=== PATIENT | male | born 1975 | race Caucasian/White ===

== ENCOUNTER 2020-05-30 23:48 | Emergency (ER) | payer SELFPAY ==
[~2020-05-30] VITALS: Ht 182.8 cm; Wt 117.9 kg
[2020-05-31] MEDS ORDERED: IBUPROFEN 800 MG (MOTRIN) TAB PO ONE ×2 (00:18→00:30)
[2020-05-31] MEDS ORDERED: ACETAMINOPHEN 500 MG TAB (TYLENOL) ONE (00:18)
[2020-05-31] MEDS ORDERED: ACETAMINOPHEN 500 MG TAB (TYLENOL) PO ONE (00:30)
--- NOTE | 2020-05-31 00:31 | ED Cough/URI ---
General Chief Complaint: Cough/Cold/Flu Symptoms Stated Complaint: DIZZY,TASTE WEIRD,NBACK PAIN,SORE THROAT Source: patient (VERY VAGUE AND LIMITED HISTORIAN) History of Present Illness Date Seen by Provider: May 31, 2020 Time Seen by Provider: 00:15 Initial Comments PT ARRIVES VIA POV FROM HOME PT STATES HE HAS BEEN SICK FOR 4-5 DAYS C/O NON-PRODUCTIVE COUGH C/O NASAL CONGESTION C/O SORE THROAT C/O LOSS OF TASTE AND SMELL C/O BODY ACHES/BACK PAIN C/O DIZZINESS C/O FATIGUE C/O "COLD CHILLS"--HAS NOT CHECKED TEMP AT HOME--TEMP IS 101.4 ON ARRIVAL HERE C/O MILD HEADACHE NO CHEST PAIN NO SHORTNESS OF BREATH NO GI SYMPTOMS NO CHRONIC MEDICAL ILLNESSES PT HAS NOT SOUGHT CARE UNTIL TONIGHT PT HAS NOT TAKEN ANYTHING FOR SYMPTOMS AT ANY TIME SYMPTOMS ARE NO DIFFERENT TONIGHT IN ANY WAY NO KNOWN SICK CONTACTS OR KNOWN EXPOSURE TO COVID-19 LIVES AT HOME WITH HIS BROTHER--NEITHER OF THEM WORK PCP: [facility] Allergies and Home Medications Allergies Coded Allergies: No Known Drug Allergies (Unverified , 05/31/20) Patient Home Medication List Home Medication List Reviewed: Yes Review of Systems Review of Systems Constitutional: see HPI, chills, diaphoresis, dizziness, fever, malaise EENTM: see HPI, nose congestion, throat pain, other (LOSS OF TASTE AND SMELL) Respiratory: see HPI, cough; No short of breath Cardiovascular: no symptoms reported Gastrointestinal: no symptoms reported; No abdominal pain, No nausea, No vomiting Genitourinary: no symptoms reported Musculoskeletal: see HPI (BODY ACHES), back pain Skin: no symptoms reported Psychiatric/Neurological: No Symptoms Reported; Denies Headache Hematologic/Lymphatic: No Symptoms Reported Immunological/Allergic: no symptoms reported Past Aairrca-Gkpdhs-Gfoymu Hx Past Med/Social Hx: Reviewed and Corrections made Patient Social History Alcohol Use: Past History Drug of Choice: DENIES Type Used: Smokeless Tobacco Past Medical History Surgeries: No Respiratory: No Cardiac: No Neurological: No Genitourinary: No Gastrointestinal: No Musculoskeletal: No Endocrine: No HEENT: No Cancer: No Psychosocial: No Integumentary: No Blood Disorders: No Physical Exam Vital Signs - First Documented 05/31/20 01:15 Pulse Ox 99 Capillary Refill : Height: '" Weight: lbs. oz. kg; BMI Method: General Appearance: WD/WN, no apparent distress, other (DOES NOT APPEAR ILL OR TO BE IN ANY DISCOMFORT OR DISTRESS. 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, no motor/sensory deficits, alert, normal mood/affect, oriented x 3 Skin: normal color, diaphoresis (AND VERY WARM) Progress/Results/Core Measures Suspected Sepsis SIRS Temperature: Pulse: Respiratory Rate: Blood Pressure / Mean: Results/Orders Lab Results Laboratory Tests Test 05/31/20 00:20 Range/Units Coronavirus 2019 (ABBEY) Positive H Negative Group A Streptococcus Screen NEGATIVE NEGATIVE Micro Results Microbiology 05/31/20 Influenza Types A,B Antigen (PASCUAL) - Final, Complete My Orders Orders - NEMESIO KRAFT DO Rapid Strep A Screen (05/31/20 00:17) Influenza A And B Antigens (05/31/20 00:17) Coronavirus Sars-Cov-2 So 2018 (05/31/20 00:17) Covid 19 Inhouse Test (05/31/20 00:17) Ibuprofen Tablet (Motrin Tablet) (05/31/20 00:30) Acetaminophen Tablet (Tylenol Tablet) (05/31/20 00:30) Ibuprofen Tablet (Motrin Tablet) (05/31/20 00:18) Acetaminophen Tablet (Tylenol Tablet) (05/31/20 00:18) Medications Given in ED Current Medications Medications Dose Ordered Sig/Juan Route Start Time Stop Time Status Last Admin Dose Admin Acetaminophen 1,000 mg ONCE ONCE PO 05/31/20 00:30 05/31/20 00:31 DC 05/31/20 00:23 1,000 MG Ibuprofen 800 mg ONCE ONCE PO 05/31/20 00:30 05/31/20 00:31 DC 05/31/20 00:23 800 MG Vital Signs/I&O 05/31/20 05/31/20 2 00:13 00:13 01:15 Temp 38.6 37.8 Pulse 89 79 Resp 20 18 B/P (MAP) 129/63 (85) 121/67 (85) Pulse Ox 99 O2 Delivery Room Air Room Air Room Air Capillary Refill : Progress Note : Progress Note PLACED IN ISOLATION ROOM PPE WORN AT ALL TIMES COVID-19 TESTING PERFORMED PT ADVISED OF NEED FOR QUARANTINE GIVEN TYLENOL AND MOTRIN FOR FEVER TEMP DOWN TO 100.3 AT DISMISSAL AND PT IS NOW SWEATING PROFUSELY NO COUGH, NO DYSPNEA, NO HYPOXIA DURING ER STAY Departure Impression Primary Impression: COVID-19 virus infection Disposition: HOME, SELF-CARE Condition: Stable Departure-Patient Inst. Referrals: [facility] (PCP/Family) Primary Care Physician Patient Instructions: Coronavirus Disease 2019 (COVID-19) ED, Preventing the Spread of an Infectious Disease Add. Discharge Instructions: LOTS OF CLEAR LIQUIDS--WATER, BROTH, JELLO, GATORADE TYLENOL 1 GRAM AND MOTRIN 800 MG 4 TIMES A DAY NEEDED FOR PAIN OR FEVER OVER THE COUNTER MEDICATIONS NEEDED FOR COUGH AND CONGESTION FOLLOW UP WITH YOUR DR IN 4-5 DAYS IF NO BETTER, RETURN TO ER IF WORSE QUARANTINE YOURSELF AND ALL HOUSEHOLD MEMBERS AND CLOSE CONTACTS FOR 2 WEEKS OR UNTIL CLEARED BY YOUR DR OR HEALTH DEPT All discharge instructions reviewed with patient and/or family. Voiced understanding. NEMESIO KRAFT DO May 31, 2020 00:31
[2020-05-31 01:15] VITALS: BP 121/67
== END 2020-05-31 01:20 | disposition home or self-care (01) ==
LOC: EDUNIT# 23:48 → ER 23:55
DX: U07.1 COVID-19 (principal)
CPT/HCPCS: 87430; 87804; 99282; U0002; 87635

== ENCOUNTER 2020-06-05 23:18 | Emergency (ER) | payer SELFPAY ==
[~2020-06-05] VITALS: Ht 182.9 cm; Wt 118.2 kg
[2020-06-05] MEDS ORDERED: ACETAMINOPHEN 500 MG TAB (TYLENOL) ONE (23:30)
[2020-06-05] MEDS ORDERED: ACETAMINOPHEN 500 MG TAB (TYLENOL) PO ONE (23:45)
[2020-06-05 23:47] LABS: ALBUMIN 3.5 GM/DL (3.2-4.5); CHLORIDE 101 MMOL/L (98-107); POTASSIUM 3.8 MMOL/L (3.6-5.0); SODIUM 138 MMOL/L (135-145)
[2020-06-05 23:48] LABS: BASOPHILS % (AUTO) 0 % (0-10); CALCIUM 8.7 MG/DL (8.5-10.1); EOSINOPHILS % (AUTO) 2 % (0-10); HEMATOCRIT 39 % (40-54); HEMOGLOBIN 11.8 g/dL (13.3-17.7); LYMPHOCYTES # (AUTO) 0.5 10^3/uL (1.0-4.0); LYMPHOCYTES % (AUTO) 22 % (12-44); MEAN CORPUSCULAR HEMOGLOBIN 25 pg (25-34); MEAN CORPUSCULAR HGB CONC 30 g/dL (32-36); MEAN CORPUSCULAR VOLUME 83 fL (80-99); MEAN PLATELET VOLUME 11.5 fL (9.0-12.2); MONOCYTES # (AUTO) 0.4 10^3/uL (0.0-1.0); MONOCYTES % (AUTO) 17 % (0-12); NEUTROPHILS # (AUTO) 1.4 10^3/uL (1.8-7.8); NEUTROPHILS % (AUTO) 59 % (42-75); PLATELET COUNT 274 10^3/uL (130-400); WHITE BLOOD COUNT 2.5 10^3/uL (4.3-11.0)
[2020-06-05 23:49] LABS: GLUCOSE 97 MG/DL (70-105); TOTAL PROTEIN 6.4 GM/DL (6.4-8.2)
--- NOTE | 2020-06-05 23:49 | ED General ---
General Chief Complaint: Fever-Adult/Adol Stated Complaint: FEVER,COVID+ Source of Information: Patient Exam Limitations: No Limitations History of Present Illness Date Seen by Provider: Jun 05, 2020 Time Seen by Provider: 23:30 Initial Comments Patient is a 44-year-old male who presents to the emergency department today with a chief complaint of generally not feeling well. Patient states that he was diagnosed with coronavirus approximately 1 week ago. Patient states that a couple of days ago he was diagnosed with an eye infection and was given TobraDex eyedrops at [facility]. Patient states that he felt like this evening his eye was becoming "infected again" and started using the drops. Patient states the drops made him cough and he states that he coughed up flecks of blood. Patient states that he has had fever tonight. He has had a bad taste in his mouth. He has been coughing more than usual. Denies any complaints of earache runny nose or sore throat. Denies feeling short of breath. No nausea, vomiting or diarrhea. No urinary complaints. Patient states that he just generally feels not well. All other review of systems reviewed and negative except as stated. Timing/Duration: 1-3 Hours Severity: Moderate Associated Systoms: Cough, Fever/Chills, Malaise Allergies and Home Medications Allergies Coded Allergies: No Known Drug Allergies (Unverified , 05/31/20) Patient Home Medication List Home Medication List Reviewed: Yes Review of Systems Review of Systems Constitutional: see HPI EENTM: no symptoms reported Respiratory: cough; No short of breath Cardiovascular: no symptoms reported Gastrointestinal: no symptoms reported Genitourinary: no symptoms reported Musculoskeletal: no symptoms reported Skin: no symptoms reported All Other Systems Reviewed Negative Unless Noted: Yes Past Iqjfbkl-Yvvdwi-Jlviot Hx Patient Social History Drug of Choice: DENIES Type Used: Smokeless Tobacco Past Medical History Surgeries: No Respiratory: No Cardiac: No Neurological: No Genitourinary: No Gastrointestinal: No Musculoskeletal: No Endocrine: No HEENT: No Cancer: No Psychosocial: No Integumentary: No Blood Disorders: No Physical Exam-Suspected Sepsis Physical Exam Vital Signs Vital Signs - First Documented 06/05/20 23:20 Temp 38.3 Pulse 78 Resp 20 B/P (MAP) 120/67 (84) Pulse Ox 99 O2 Delivery Room Air Capillary Refill : Height, Weight, BMI Height: '" Weight: lbs. oz. kg; 35.00 BMI Method: General Appearance: No Apparent Distress, WD/WN Eyes: Bilateral Eye Normal Inspection, Bilateral Eye PERRL, Bilateral Eye EOMI HEENT: PERRL/EOMI, TMs Normal, Normal ENT Inspection, Pharynx Normal Respiratory: Rhonci, Wheezing Cardiovascular: Regular Rate, Rhythm, No Murmur Gastrointestinal: Normal Bowel Sounds, Non Tender, Soft Extremity: Normal Capillary Refill, Normal Inspection, Non Tender, No Calf Tenderness, No Pedal Edema Neurologic/Psychiatric: Alert, Oriented x3, No Motor/Sensory Deficits, Normal Mood/Affect Skin: normal color, warm/dry Progress/Results/Core Measures Suspected Sepsis SIRS Temperature: Pulse: Respiratory Rate: Laboratory Tests 06/05/20 23:20: White Blood Count 2.5L Blood Pressure / Mean: Laboratory Tests 06/05/20 23:20: Creatinine 0.86, Platelet Count 274, Total Bilirubin 0.4 Results/Orders Lab Results Laboratory Tests Test 06/05/20 23:20 Range/Units White Blood Count 2.5 L 4.3-11.0 10^3/uL Red Blood Count 4.69 4.30-5.52 10^6/uL Hemoglobin 11.8 L 13.3-17.7 g/dL Hematocrit 39 L 40-54 % Mean Corpuscular Volume 83 80-99 fL Mean Corpuscular Hemoglobin 25 25-34 pg Mean Corpuscular Hemoglobin Concent 30 L 32-36 g/dL Red Cell Distribution Width 15.1 H 10.0-14.5 % Platelet Count 274 130-400 10^3/uL Mean Platelet Volume 11.5 9.0-12.2 fL Immature Granulocyte % (Auto) 1 % Neutrophils (%) (Auto) 59 42-75 % Lymphocytes (%) (Auto) 22 12-44 % Monocytes (%) (Auto) 17 H 0-12 % Eosinophils (%) (Auto) 2 0-10 % Basophils (%) (Auto) 0 0-10 % Neutrophils # (Auto) 1.4 L 1.8-7.8 10^3/uL Lymphocytes # (Auto) 0.5 L 1.0-4.0 10^3/uL Monocytes # (Auto) 0.4 0.0-1.0 10^3/uL Eosinophils # (Auto) 0.0 0.0-0.3 10^3/uL Basophils # (Auto) 0.0 0.0-0.1 10^3/uL Immature Granulocyte # (Auto) 0.0 0.0-0.1 10^3/uL Sodium Level 138 135-145 MMOL/L Potassium Level 3.8 3.6-5.0 MMOL/L Chloride Level 101 98-107 MMOL/L Carbon Dioxide Level 26 21-32 MMOL/L Anion Gap 11 5-14 MMOL/L Blood Urea Nitrogen 10 7-18 MG/DL Creatinine 0.86 0.60-1.30 MG/DL Estimat Glomerular Filtration Rate > 60 BUN/Creatinine Ratio 12 Glucose Level 97 70-105 MG/DL Calcium Level 8.7 8.5-10.1 MG/DL Corrected Calcium 9.1 8.5-10.1 MG/DL Total Bilirubin 0.4 0.1-1.0 MG/DL Aspartate Amino Transf (AST/SGOT) 35 H 5-34 U/L Alanine Aminotransferase (ALT/SGPT) 47 0-55 U/L Alkaline Phosphatase 137 H 40-136 U/L C-Reactive Protein High Sensitivity 5.37 H 0.00-0.50 MG/DL Total Protein 6.4 6.4-8.2 GM/DL Albumin 3.5 3.2-4.5 GM/DL My Orders Orders - ADEOLA GARCIA MD Ed Iv/Invasive Line Start (06/05/20 23:35) Cbc With Automated Diff (06/05/20 23:35) Comprehensive Metabolic Panel (06/05/20 23:35) Hs C Reactive Protein (06/05/20 23:35) Chest 1 View, Ap/Pa Only (06/05/20 23:35) Acetaminophen Tablet (Tylenol Tablet) (06/05/20 23:45) Acetaminophen Tablet (Tylenol Tablet) (06/05/20 23:30) Medications Given in ED Vital Signs/I&O Capillary Refill : Progress Note : Time: 00:12 Progress Note 44-year-old male presents to the emergency department today with a chief complaint of generalized malaise and fatigue in the setting of 1 week of coronavirus. Evaluation today includes a physical exam, CBC, Chem-12, CRP and chest x-ray. Patient's white blood cell count is rather low at 2.5. He does h ave a mildly elevated CRP at 5. Otherwise his laboratory studies are unremarkable. Patient did have a temperature of 101 here in the emergency department. He states that he ran out of Tylenol last weekend. He is not tachycardic or hypotensive or hypoxic at this visit. He does not meet criteria at this time for SIRS or sepsis. Chest x-ray is reviewed shows no evidence of pneumonia/infiltrate/effusion. Patient is treated in the emergency department with a gram of Tylenol. He has improvement of his fever. Patient will be discharged home with conservative management, fluids Tylenol and ibuprofen. He is strongly encouraged to follow-up with his primary care physician. He verbalizes understanding. All questions are sought and answered. Patient is stable for discharge. Departure Impression Primary Impression: Fever Qualified Codes: R50.81 - Fever presenting with conditions classified elsewhere Additional Impression: Coronavirus infection Disposition: HOME, SELF-CARE Condition: Stable Departure-Patient Inst. Decision time for Depature: 00:15 Referrals: [facility] ([place]P/Family) Primary Care Physician Patient Instructions: Coronavirus Disease 2019 (COVID-19) (DC), Fever, Adult (DC) Add. Discharge Instructions: Drink plenty of fluids to stay well-hydrated. Alternate [id number]-bexkpun Tylenol and ibuprofen as needed every 6 hours for fever/body aches. Follow-up with your primary care physician. Return to the emergency department for any worsening symptoms, shortness of breath, cough or other emergent concerns. Copy Copies To 1: KEATON DIAZ KATHRYN M MD Jun 05, 2020 23:49
[2020-06-05 23:50] LABS: CARBON DIOXIDE 26 MMOL/L (21-32)
[2020-06-05 23:51] LABS: BILIRUBIN,TOTAL 0.4 MG/DL (0.1-1.0)
[2020-06-05 23:53] LABS: ALKALINE PHOSPHATASE 137 U/L (40-136); CREATININE SERUM 0.86 MG/DL (0.60-1.30); GFR ESTIMATED > 60
[2020-06-05 23:54] LABS: BUN/CREATININE RATIO 12
[2020-06-05 23:56] LABS: ALANINE AMINOTRANSFERASE 47 U/L (0-55)
[2020-06-06 01:15] VITALS: BP 116/72
--- NOTE | 2020-06-06 06:07 | Diagnostic Imaging Report ---
INDICATION: Lower respiratory infection Portable chest 11:59 PM Heart size and pulmonary vascularity are normal. Lungs are clear. There are no effusions or pneumothoraces. IMPRESSION: No acute abnormalities in the chest Dictated by: Dictated on workstation # [id number]
== END 2020-06-06 02:30 | disposition home or self-care (01) ==
LOC: EDUNIT# 23:18 → ER 23:19
DX: U07.1 COVID-19 (principal)
CPT/HCPCS: 36415; 71045; 80053; 85025; 86141